=== PATIENT | female | born 1990 | race Caucasian/White ===

== ENCOUNTER 2016-12-01 02:18 | Emergency (ER) | payer OTHER ==
[2016-12-01 04:33] VITALS: BP 100/54
== END 2016-12-01 04:33 | disposition home or self-care (01) ==
LOC: ED 02:18
DX: M94.0 Chondrocostal junction syndrome [Tietze] (principal); S29.011A Strain of muscle and tendon of front wall of thorax, initial encounter; X58.XXXA Exposure to other specified factors, initial encounter; Y93.89 Activity, other specified; Y92.89 Other specified places as the place of occurrence of the external cause; Y99.8 Other external cause status
CPT/HCPCS: J1885

== ENCOUNTER 2016-12-13 10:29 | Emergency (ER) | payer OTHER ==
[2016-12-13 14:59] VITALS: BP 119/74
== END 2016-12-13 14:20 | disposition home or self-care (01) ==
LOC: ED 10:29
DX: R51 Headache (principal); H52.10 Myopia, unspecified eye
CPT/HCPCS: J1885

== ENCOUNTER 2019-02-14 00:10 | Emergency (ER) | payer OTHER ==
[~2019-02-14] VITALS: Ht 162.6 cm; Wt 60.3 kg
[2019-02-14 01:33] LABS: BASOPHIL % 0.3 % (0-2); PLATELET COUNT 273 x10^3mcL (130-400); RED CELL DISTRIBUTION WIDTH 13.9 % (11.5-14.5)
[2019-02-14 01:39] LABS: CALCIUM 8.3 mg/dL (8.5-10.1); CARBON DIOXIDE 29.4 mmol/L (21-32); CHLORIDE SERUM 108 mmol/L (98-107); GFR1 > 60 mL/min; GLUCOSE SERUM 89 mg/dL (74-106); POTASSIUM SERUM 4.5 mmol/L (3.5-5.1); SODIUM SERUM 145 mmol/L (136-145)
[2019-02-14 01:43] LABS: ALBUMIN 3.4 g/dL (3.4-5.0); ALKALINE PHOSPHATASE 57 U/L (46-116); ALT/SGPT 14 U/L (14-59); AMYLASE 96 U/L (25-115); AST/SGOT 14 U/L (15-37); BILIRUBIN TOTAL 0.13 mg/dL (0.20-1.00); LIPASE 121 IU/L (73-393); TOTAL PROTEIN, SERUM 7.2 g/dL (6.4-8.2)
[2019-02-14 02:43] VITALS: BP 109/65
[2019-02-14 04:17] LABS: microscopic required? YES; urine erythrocyte 2+ (NEGATIVE)
== END 2019-02-14 02:43 | disposition home or self-care (01) ==
LOC: ED 00:10
PROVIDERS: Emergency Medicine
DX: K21.9 Gastro-esophageal reflux disease without esophagitis (principal); N39.0 Urinary tract infection, site not specified
CPT/HCPCS: C9113; J0696; J1885; J2405; J7030; J7060

== ENCOUNTER 2019-03-20 11:36 | Emergency (ER) | payer MEDICAID ==
[~2019-03-20] VITALS: Ht 162.6 cm; Wt 59.4 kg
[2019-03-20 11:43] VITALS: Ht 162.6 cm; Wt 59.4 kg
[2019-03-20 13:26] VITALS: BP 105/54
== END 2019-03-20 13:26 | disposition home or self-care (01) ==
LOC: ED 11:36
DX: N64.4 Mastodynia (principal)

== ENCOUNTER 2020-06-19 00:54 | Emergency (ER) | payer MEDICAID ==
[~2020-06-19] VITALS: Ht 162.6 cm; Wt 62.1 kg
[2020-06-19 01:13] VITALS: Ht 162.6 cm; Wt 62.1 kg
[2020-06-19 04:05] LABS: BASOPHIL % 0.4 % (0.2-1.3); PLATELET COUNT 309 x10^3mcL (179-408)
[2020-06-19 04:06] LABS: RED CELL DISTRIBUTION WIDTH 16.4 % (12.3-17.7)
[2020-06-19 04:07] LABS: rbc morphology (normal/abnorm) NORMAL (NORMAL)
[2020-06-19 04:33] LABS: CALCIUM 8.3 mg/dL (8.5-10.1); CARBON DIOXIDE 26.4 mmol/L (21-32); CHLORIDE SERUM 107 mmol/L (98-107); CREATININE SERUM 0.7 mg/dL (0.6-1.0); GFR1 > 60 mL/min; GLUCOSE SERUM 88 mg/dL (74-106); SODIUM SERUM 141 mmol/L (136-145)
[2020-06-19 04:37] LABS: ALKALINE PHOSPHATASE 55 U/L (46-116); ALT/SGPT 32 U/L (14-59); AST/SGOT 19 U/L (15-37); BILIRUBIN TOTAL 0.24 mg/dL (0.20-1.00); TOTAL PROTEIN, SERUM 6.9 g/dL (6.4-8.2)
[2020-06-19 04:38] LABS: ALBUMIN 3.3 g/dL (3.4-5.0)
[2020-06-19 05:01] VITALS: BP 96/32
== END 2020-06-19 05:01 | disposition home or self-care (01) ==
LOC: ED 00:54
PROVIDERS: Emergency Medicine
DX: R07.89 Other chest pain (principal); R06.02 Shortness of breath